=== PATIENT | male | born 1960 | race Two or more races ===

== ENCOUNTER 2019-07-12 04:48 | Day surgery (SDC) | payer OTHER ==
[~2019-07-12 04:48] MED LIST: GLUCOTROL10 MG PO; JANUMET XR 50-1 EAC1 PO
== END 2019-07-12 16:00 | disposition home or self-care (01) ==
LOC: CIR.AMB 04:48
DX: K40.91 Unilateral inguinal hernia, without obstruction or gangrene, recurrent (principal)